=== PATIENT | male | born 1935 | race African-American/Black ===

== ENCOUNTER 2019-01-12 20:32 | Inpatient (IN) | payer MEDICARE ==
[~2019-01-12] VITALS: Ht 175.3 cm; Wt 75.0 kg
[2019-01-12] MEDS ORDERED: SODIUM CHLORIDE 0.9% 1,000 ML IV ONE (21:43)
[2019-01-12] MEDS ORDERED: ONDANSETRON HCL 4MG/2ML INJ IV STA (21:43)
[2019-01-12] MEDS ORDERED: MORPHINE SULFATE 4 MG/ML CPJ (NOT FOR IM USE) IV STA (21:43)
[2019-01-12] MEDS ORDERED: HYDRALAZINE 20MG/ML VIAL IV ONE (23:30)
[2019-01-12 23:55] LABS: BASOPHILS % 0.5 % (0.0-2.0); EOSINOPHILS % 4.9 % (0.0-5.0); HEMOGLOBIN. 8.9 g/dL (14.0-18.0); LYMPHOCYTES % 33.3 % (20.0-50.0); MEAN CORPUSCULAR HEMOGLOBIN 27.3 pg (28.0-32.0); MEAN CORPUSCULAR VOLUME 83.4 fL (80.0-94.0); MEAN PLATELET VOLUME 6.7 fl (7.4-10.4); MONOCYTES % 9.5 % (2.0-8.0); NEUTROPHILS % 51.8 % (40.0-76.0); PLATELET 232 x1000/uL (130-400); RED BLOOD CELL COUNT 3.24 mill/uL (4.7-6.1); RED CELL DISTRIBUTION WIDTH 17.6 % (11.6-14.6)
[2019-01-13 00:01] LABS: CHLORIDE 113 mEq/L (98-107)
[2019-01-13 00:05] LABS: INR 1.1; PARTIAL THROMBOPLASTIN TIME 26.8 sec (23.4-31.0); PROTHROMBIN TIME 11.3 sec (9.6-11.0)
[2019-01-13] MEDS ORDERED: MORPHINE SULFATE 4 MG/ML CPJ (NOT FOR IM USE) IV ONE (00:45)
[2019-01-13] MEDS ORDERED: CEFTRIAXONE 1 G PREMIX 50 ML IV ONE (00:45)
[2019-01-13 01:10] LABS: CLARITY URINE CLEAR (CLEAR); COLOR URINE YELLOW (YELLOW); KETONES URINE NEGATIVE (NEGATIVE); LEUKOCYTE ESTERASE URINE NEGATIVE (NEGATIVE); NITRITE URINE NEGATIVE (NEGATIVE); OCCULT BLOOD URINE 1+ (NEGATIVE); PROTEIN URINE 2+ (NEGATIVE); SPECIFIC GRAVITY URINE 1.011 (1.005-1.030); UROBILINOGEN URINE 0.2 E.U./dL (0.2-1.0)
[2019-01-13] MEDS ORDERED: ASPIRIN 81MG TABLET PO ONE (01:45)
[2019-01-13] MEDS ORDERED: CLONIDINE 0.2MG TABLET PO ONE (07:54)
[2019-01-13] MEDS: MORPHINE SULFATE 2 MG/ML CPJ (NOT FOR IM USE) IV PRN ×2 (08:56→13:38)
[2019-01-13] MEDS ORDERED: ONDANSETRON HCL 4MG/2ML INJ IV PRN (11:00)
[2019-01-13] MEDS ORDERED: SORBITOL 70% SOLN 30ML PO NR (11:00)
[2019-01-13 11:22] VITALS: BP 176/98
[2019-01-13] MEDS ORDERED: ASPI-1393 MT (11:22)
[2019-01-13] MEDS ORDERED: OMEP20CA5 MT (11:22)
[2019-01-13] MEDS ORDERED: DOCU250C14 MT (11:22)
[2019-01-13] MEDS ORDERED: ATOR10TA MT (11:22)
[2019-01-13] MEDS ORDERED: MIRT45TA83 MT (11:22)
[2019-01-13] MEDS ORDERED: POLY17PO3 MT (11:22)
[2019-01-13] MEDS ORDERED: NIFE90TA34 PO (11:22)
[2019-01-13] MEDS ORDERED: LABE200T28 MT (11:22)
[2019-01-13] MEDS ORDERED: SEVE800T8 MT (11:22)
[2019-01-13] MEDS ORDERED: TAMS-11 MT (11:22)
[2019-01-13] MEDS: LOSARTAN POTASSIUM 100 MG TABLET PO SCH (11:38)
[2019-01-13] MEDS: NIFEDIPINE XL 90MG TAB PO SCH (11:38)
[2019-01-13] MEDS ORDERED: LACTULOSE 20G/30ML UDC PO PRN (11:45)
[2019-01-13 12:32] VITALS: BP 189/94
[2019-01-13] MEDS: DOCUSATE SODIUM 100MG CAPSULE PO SCH ×2 (12:39→17:10)
[2019-01-13] MEDS: CITRIC ACID/SODIUM CITRATE SOLN 30ML UDC PO SCH ×2 (12:39→17:10)
[2019-01-13] MEDS ORDERED: MORPHINE SULFATE 2 MG/ML CPJ (NOT FOR IM USE) IV NR (13:38)
[2019-01-13 16:13] VITALS: BP_SYST 184; BP_SYST 185; BP_DIAS 98
[2019-01-13] MEDS ORDERED: LABETALOL 5MG/ML SYR 20 MG/4 ML SYRINGE IV NR (16:45)
[2019-01-13] MEDS ORDERED: HYDRALAZINE 20MG/ML VIAL IV NR (18:30)
[2019-01-13 20:00] VITALS: BP 156/82
[2019-01-13] MEDS: HYDRALAZINE HCL 50MG TABLET PO SCH (21:47)
[2019-01-13] MEDS: METOPROLOL TARTRATE 100MG TABLET PO SCH (21:47)
[2019-01-14] VITALS: BP 165/87
[2019-01-14] MEDS: CLONIDINE 0.1MG TABLET PO PRN ×2 (00:44→17:17)
[2019-01-14 04:00] VITALS: BP 139/83
[2019-01-14 08:20] LABS: BASOPHILS % 0.7 % (0.0-2.0); EOSINOPHILS % 4.9 % (0.0-5.0); HEMOGLOBIN. 8.7 g/dL (14.0-18.0); LYMPHOCYTES % 32.5 % (20.0-50.0); MEAN CORPUSCULAR HEMOGLOBIN 27.9 pg (28.0-32.0); MEAN CORPUSCULAR VOLUME 83.3 fL (80.0-94.0); MEAN PLATELET VOLUME 7.1 fl (7.4-10.4); MONOCYTES % 12.2 % (2.0-8.0); NEUTROPHILS % 49.7 % (40.0-76.0); PLATELET 221 x1000/uL (130-400); RED BLOOD CELL COUNT 3.12 mill/uL (4.7-6.1); RED CELL DISTRIBUTION WIDTH 17.9 % (11.6-14.6)
[2019-01-14] MEDS: NIFEDIPINE XL 90MG TAB PO SCH (09:00)
[2019-01-14] MEDS: METOPROLOL TARTRATE 100MG TABLET PO SCH ×2 (09:00→20:28)
[2019-01-14 09:02] LABS: PHOSPHORUS 5.2 mg/dL (2.5-4.9)
[2019-01-14] MEDS: DOCUSATE SODIUM 100MG CAPSULE PO SCH ×2 (09:16→17:16)
[2019-01-14] MEDS: LOSARTAN POTASSIUM 100 MG TABLET PO SCH (09:17)
[2019-01-14] MEDS: HYDRALAZINE HCL 50MG TABLET PO SCH (09:18)
[2019-01-14] MEDS: CITRIC ACID/SODIUM CITRATE SOLN 30ML UDC PO SCH ×3 (09:25→17:16)
[2019-01-14 20:00] VITALS: BP 174/90
[2019-01-14] MEDS: HYDRALAZINE HCL 100MG TABLET PO SCH (20:28)
[2019-01-15] VITALS: BP 185/90
[2019-01-15] MEDS: CLONIDINE 0.1MG TABLET PO PRN ×2 (00:19→06:20)
[2019-01-15 04:30] VITALS: BP 288/87
[2019-01-15 07:55] VITALS: BP 186/85
[2019-01-15 08:09] LABS: EOSINOPHILS % 4.5 % (0.0-5.0); HEMATOCRIT. 25.3 % (42.0-52.0); HEMOGLOBIN. 8.4 g/dL (14.0-18.0); LYMPHOCYTES % 36.5 % (20.0-50.0); MEAN CORPUSCULAR HEMOGLOBIN 27.9 pg (28.0-32.0); MEAN CORPUSCULAR VOLUME 83.3 fL (80.0-94.0); MEAN PLATELET VOLUME 7.3 fl (7.4-10.4); MONOCYTES % 11.9 % (2.0-8.0); NEUTROPHILS % 46.1 % (40.0-76.0); PLATELET 212 x1000/uL (130-400); RED BLOOD CELL COUNT 3.03 mill/uL (4.7-6.1); RED CELL DISTRIBUTION WIDTH 17.9 % (11.6-14.6)
[2019-01-15 08:22] LABS: PHOSPHORUS 5.8 mg/dL (2.5-4.9)
[2019-01-15] MEDS: METOPROLOL TARTRATE 100MG TABLET PO SCH ×2 (09:00→20:17)
[2019-01-15] MEDS ORDERED: LIDOCAINE HCL 1% 20ML VIAL (Pyxis) INJ ONE (09:01)
[2019-01-15] MEDS: DOCUSATE SODIUM 100MG CAPSULE PO SCH ×2 (09:03→18:40)
[2019-01-15] MEDS: CITRIC ACID/SODIUM CITRATE SOLN 30ML UDC PO SCH (09:03)
[2019-01-15] MEDS: NIFEDIPINE XL 90MG TAB PO SCH (09:04)
[2019-01-15] MEDS: HYDRALAZINE HCL 100MG TABLET PO SCH ×3 (09:04→20:17)
[2019-01-15] MEDS: LOSARTAN POTASSIUM 100 MG TABLET PO SCH (09:04)
[2019-01-15 13:17] LABS: HEPATITIS B SURFACE ANTIGEN NEGATIVE
[2019-01-15] MEDS: MORPHINE SULFATE 2 MG/ML CPJ (NOT FOR IM USE) IV PRN ×2 (14:00→20:18)
[2019-01-15] MEDS: CLONIDINE 0.1MG TABLET PO SCH ×2 (14:00→20:17)
[2019-01-15 15:49] VITALS: BP 152/84
[2019-01-15 19:57] VITALS: BP 195/88
[2019-01-15 21:30] VITALS: BP 158/74
[2019-01-16] VITALS: BP 161/76
[2019-01-16 04:00] VITALS: BP 123/59
[2019-01-16] MEDS: HYDRALAZINE HCL 100MG TABLET PO SCH ×4 (05:22→22:00)
[2019-01-16] MEDS: CLONIDINE 0.1MG TABLET PO SCH ×4 (05:22→22:00)
[2019-01-16 05:37] LABS: PHOSPHORUS 4.9 mg/dL (2.5-4.9)
[2019-01-16 06:11] LABS: BASOPHILS % 0.4 % (0.0-2.0); HEMATOCRIT. 25.8 % (42.0-52.0); HEMOGLOBIN. 8.4 g/dL (14.0-18.0); LYMPHOCYTES % 30.1 % (20.0-50.0); MEAN CORPUSCULAR HEMOGLOBIN 27.2 pg (28.0-32.0); MEAN CORPUSCULAR VOLUME 83.7 fL (80.0-94.0); MEAN PLATELET VOLUME 7.4 fl (7.4-10.4); MONOCYTES % 12.1 % (2.0-8.0); NEUTROPHILS % 53.4 % (40.0-76.0); PLATELET 193 x1000/uL (130-400); RED BLOOD CELL COUNT 3.08 mill/uL (4.7-6.1); RED CELL DISTRIBUTION WIDTH 17.9 % (11.6-14.6)
[2019-01-16 08:00] VITALS: BP 208/98
[2019-01-16] MEDS: METOPROLOL TARTRATE 100MG TABLET PO SCH ×5 (08:55→21:54)
[2019-01-16] MEDS: PAROXETINE HCL 10MG TABLET PO SCH ×3 (08:55→10:45)
[2019-01-16] MEDS: LOSARTAN POTASSIUM 100 MG TABLET PO SCH ×3 (08:56→10:45)
[2019-01-16] MEDS: CLONIDINE 0.1MG TABLET PO PRN ×2 (08:56→10:45)
[2019-01-16] MEDS: NIFEDIPINE XL 90MG TAB PO SCH ×2 (09:00→10:45)
[2019-01-16] MEDS: DOCUSATE SODIUM 100MG CAPSULE PO SCH ×2 (09:00→17:00)
[2019-01-16 12:00] VITALS: BP 177/90
[2019-01-16 14:17] LABS: HIV SCREEN 4G Non Reactive (Non Reactive)
[2019-01-16] MEDS: LORAZEPAM 2MG/ML CPJ IV PRN ×2 (16:54→22:15)
[2019-01-16] MEDS ORDERED: LACTULOSE 20G/30ML UDC PO PRN (17:00)
[2019-01-16 20:00] VITALS: BP 179/92
[2019-01-16] MEDS: EPOETIN ALFA 10000UNITS/ML VIAL SUBCUT SCH (21:55)
[2019-01-16] MEDS: HYDRALAZINE 20MG/ML VIAL IV PRN (23:10)
[2019-01-17] VITALS: BP 141/81
[2019-01-17 04:32] VITALS: BP 174/94
[2019-01-17] MEDS: HYDRALAZINE 20MG/ML VIAL IV PRN (05:51)
[2019-01-17] MEDS: HYDRALAZINE HCL 100MG TABLET PO SCH ×3 (05:52→21:39)
[2019-01-17] MEDS: CLONIDINE 0.1MG TABLET PO SCH ×3 (05:52→21:39)
[2019-01-17 07:22] LABS: BASOPHILS % 0.9 % (0.0-2.0); EOSINOPHILS % 2.7 % (0.0-5.0); HEMATOCRIT. 31.4 % (42.0-52.0); HEMOGLOBIN. 10.3 g/dL (14.0-18.0); LYMPHOCYTES % 23.6 % (20.0-50.0); MEAN CORPUSCULAR HEMOGLOBIN 27.3 pg (28.0-32.0); MEAN CORPUSCULAR VOLUME 83.2 fL (80.0-94.0); MEAN PLATELET VOLUME 7.4 fl (7.4-10.4); MONOCYTES % 13.6 % (2.0-8.0); NEUTROPHILS % 59.2 % (40.0-76.0); PLATELET 199 x1000/uL (130-400); RED BLOOD CELL COUNT 3.77 mill/uL (4.7-6.1); RED CELL DISTRIBUTION WIDTH 17.6 % (11.6-14.6)
[2019-01-17 08:00] VITALS: BP 197/100
[2019-01-17] MEDS: METOPROLOL TARTRATE 100MG TABLET PO SCH ×2 (09:03→21:39)
[2019-01-17] MEDS: PAROXETINE HCL 10MG TABLET PO SCH (09:04)
[2019-01-17] MEDS: LOSARTAN POTASSIUM 100 MG TABLET PO SCH (09:04)
[2019-01-17] MEDS: DOCUSATE SODIUM 100MG CAPSULE PO SCH ×2 (09:04→16:25)
[2019-01-17] MEDS: NIFEDIPINE XL 90MG TAB PO SCH (09:04)
[2019-01-17 10:01] LABS: PHOSPHORUS 4.1 mg/dL (2.5-4.9)
[2019-01-17 12:00] VITALS: BP 139/78
[2019-01-17 16:00] VITALS: BP 157/82
[2019-01-17 20:03] VITALS: BP 136/69
[2019-01-18] VITALS (18 sets, daily range): BP systolic 99–158; BP diastolic 53–80
[2019-01-18] MEDS: ACETAMINOPHEN 325MG TABLET PO PRN ×2 (04:29→12:22)
[2019-01-18] MEDS: CLONIDINE 0.1MG TABLET PO SCH ×3 (05:36→21:41)
[2019-01-18] MEDS: HYDRALAZINE HCL 100MG TABLET PO SCH ×3 (05:36→21:41)
[2019-01-18 07:30] LABS: BASOPHILS % 0.7 % (0.0-2.0); EOSINOPHILS % 3.2 % (0.0-5.0); HEMATOCRIT. 28.1 % (42.0-52.0); HEMOGLOBIN. 9.2 g/dL (14.0-18.0); LYMPHOCYTES % 18.7 % (20.0-50.0); MEAN CORPUSCULAR HEMOGLOBIN 27.5 pg (28.0-32.0); MEAN CORPUSCULAR VOLUME 83.5 fL (80.0-94.0); MEAN PLATELET VOLUME 7.6 fl (7.4-10.4); MONOCYTES % 14.2 % (2.0-8.0); NEUTROPHILS % 63.2 % (40.0-76.0); PLATELET 187 x1000/uL (130-400); RED BLOOD CELL COUNT 3.36 mill/uL (4.7-6.1); RED CELL DISTRIBUTION WIDTH 17.9 % (11.6-14.6)
[2019-01-18] MEDS ORDERED: SODIUM BICARBONATE 4% (2.4MEQ) 5ML VIAL IV ONE ×2 (07:39→09:01)
[2019-01-18] MEDS ORDERED: LIDOCAINE HCL 1% 20ML VIAL (Pyxis) INJ ONE ×2 (07:39→09:02)
[2019-01-18 07:55] LABS: PHOSPHORUS 5.3 mg/dL (2.5-4.9)
[2019-01-18] MEDS ORDERED: FENTANYL CITRATE/PF 50MCG/ML 2ML VIAL ONE (09:04)
[2019-01-18] MEDS ORDERED: CEFAZOLIN 1000MG PREMIX 50 ML IV ONE ×2 (09:04→09:30)
[2019-01-18] MEDS ORDERED: FENTANYL CITRATE/PF 50MCG/ML 2ML VIAL IV NR (09:30)
[2019-01-18] MEDS: LOSARTAN POTASSIUM 100 MG TABLET PO SCH (10:45)
[2019-01-18] MEDS: DOCUSATE SODIUM 100MG CAPSULE PO SCH ×2 (10:45→17:00)
[2019-01-18] MEDS: NIFEDIPINE XL 90MG TAB PO SCH (10:46)
[2019-01-18] MEDS: PAROXETINE HCL 10MG TABLET PO SCH (10:46)
[2019-01-18] MEDS: METOPROLOL TARTRATE 100MG TABLET PO SCH ×2 (10:46→21:00)
[2019-01-18] MEDS: LORAZEPAM 2MG/ML CPJ IV PRN (15:02)
[2019-01-19] VITALS: BP 142/73
[2019-01-19 04:00] VITALS: BP 130/61
[2019-01-19] MEDS: ACETAMINOPHEN 325MG TABLET PO PRN (04:09)
[2019-01-19] MEDS: EPOETIN ALFA 10000UNITS/ML VIAL SUBCUT SCH (04:11)
[2019-01-19] MEDS: CLONIDINE 0.1MG TABLET PO SCH ×3 (05:23→21:59)
[2019-01-19] MEDS: HYDRALAZINE HCL 100MG TABLET PO SCH ×3 (05:23→21:59)
[2019-01-19 06:33] LABS: BASOPHILS % 0.2 % (0.0-2.0); EOSINOPHILS % 1.9 % (0.0-5.0); HEMATOCRIT. 28.7 % (42.0-52.0); HEMOGLOBIN. 9.4 g/dL (14.0-18.0); LYMPHOCYTES % 18.8 % (20.0-50.0); MEAN CORPUSCULAR HEMOGLOBIN 27.2 pg (28.0-32.0); MEAN CORPUSCULAR VOLUME 83.2 fL (80.0-94.0); MEAN PLATELET VOLUME 7.7 fl (7.4-10.4); MONOCYTES % 14.7 % (2.0-8.0); NEUTROPHILS % 64.4 % (40.0-76.0); PLATELET 169 x1000/uL (130-400); RED BLOOD CELL COUNT 3.45 mill/uL (4.7-6.1); RED CELL DISTRIBUTION WIDTH 17.4 % (11.6-14.6)
[2019-01-19 08:00] VITALS: BP 141/60
[2019-01-19] MEDS: DOCUSATE SODIUM 100MG CAPSULE PO SCH ×2 (09:11→17:00)
[2019-01-19] MEDS: LOSARTAN POTASSIUM 100 MG TABLET PO SCH (09:11)
[2019-01-19] MEDS: METOPROLOL TARTRATE 100MG TABLET PO SCH ×2 (09:11→20:28)
[2019-01-19] MEDS: PAROXETINE HCL 10MG TABLET PO SCH (09:11)
[2019-01-19] MEDS: NIFEDIPINE XL 90MG TAB PO SCH (09:11)
[2019-01-19 09:31] LABS: PHOSPHORUS 3.3 mg/dL (2.5-4.9)
[2019-01-19 12:00] VITALS: BP_SYST 10; BP_SYST 160; BP_DIAS 60
[2019-01-19 20:00] VITALS: BP 130/59
[2019-01-20] VITALS: BP 97/58
[2019-01-20 04:00] VITALS: BP 136/77
[2019-01-20] MEDS: CLONIDINE 0.1MG TABLET PO SCH (06:22)
[2019-01-20] MEDS: HYDRALAZINE HCL 100MG TABLET PO SCH (06:22)
[2019-01-20] MEDS: ACETAMINOPHEN 325MG TABLET PO PRN (06:31)
[2019-01-20 07:29] LABS: HEMOGLOBIN. 8.8 g/dL (14.0-18.0); MEAN CORPUSCULAR HEMOGLOBIN 27.3 pg (28.0-32.0); MEAN PLATELET VOLUME 7.8 fl (7.4-10.4); PLATELET 179 x1000/uL (130-400); RED BLOOD CELL COUNT 3.22 mill/uL (4.7-6.1)
[2019-01-20 07:32] LABS: PHOSPHORUS 4.2 mg/dL (2.5-4.9)
[2019-01-20 08:00] VITALS: BP 117/59
[2019-01-20] MEDS: LOSARTAN POTASSIUM 100 MG TABLET PO SCH (09:00)
[2019-01-20] MEDS: METOPROLOL TARTRATE 100MG TABLET PO SCH (09:00)
[2019-01-20] MEDS: NIFEDIPINE XL 90MG TAB PO SCH (09:00)
[2019-01-20] MEDS: LORAZEPAM 2MG/ML CPJ IV PRN (09:31)
[2019-01-20] MEDS: DOCUSATE SODIUM 100MG CAPSULE PO SCH ×2 (09:31→17:00)
[2019-01-20] MEDS: PAROXETINE HCL 10MG TABLET PO SCH (09:32)
[2019-01-20 12:00] VITALS: BP 88/54
[2019-01-20 13:40] LABS: PLATELET ESTIMATE NORMAL
[2019-01-20 15:52] VITALS: BP_SYST 130; BP_SYST 139; BP_DIAS 63
[2019-01-20 16:00] VITALS: BP 130/63
[2019-01-20] MEDS ORDERED: HYDRALAZINE HCL 25MG TABLET PO SCH (21:00)
[2019-01-20] MEDS ORDERED: METOPROLOL TARTRATE 50MG TABLET PO SCH (21:00)
[2019-01-21] MEDS ORDERED: NIFEDIPINE XL 60MG TAB PO SCH (09:00)
== END 2019-01-20 18:35 | disposition home or self-care (01) | DRG 673 ==
LOC: ER 20:32 → ENRESERV 01-13 08:10 → EDBD 01-13 10:03 → 6WST 01-13 10:03
PROVIDERS: ADMIT Internal Medicine; ATTEND Internal Medicine
PROC: 02HV33Z Insertion of Infusion Device into Superior Vena Cava, Percutaneous Approach (ICD-10-PCS; principal; 2019-01-15)
PROC: B5181ZA Fluoroscopy of Superior Vena Cava using Low Osmolar Contrast, Guidance (ICD-10-PCS; 2019-01-15)
PROC: B548ZZA Ultrasonography of Superior Vena Cava, Guidance (ICD-10-PCS; 2019-01-15)
PROC: 5A1D70Z Performance of Urinary Filtration, Intermittent, Less than 6 Hours Per Day (ICD-10-PCS; 2019-01-15)
PROC: 5A1D70Z Performance of Urinary Filtration, Intermittent, Less than 6 Hours Per Day (ICD-10-PCS; 2019-01-16)
PROC: 0JH63XZ Insertion of Tunneled Vascular Access Device into Chest Subcutaneous Tissue and Fascia, Percutaneous Approach (ICD-10-PCS; 2019-01-18)
PROC: 02HV33Z Insertion of Infusion Device into Superior Vena Cava, Percutaneous Approach (ICD-10-PCS; 2019-01-18)
PROC: B5181ZA Fluoroscopy of Superior Vena Cava using Low Osmolar Contrast, Guidance (ICD-10-PCS; 2019-01-18)
PROC: B548ZZA Ultrasonography of Superior Vena Cava, Guidance (ICD-10-PCS; 2019-01-18)
PROC: 02HV33Z Insertion of Infusion Device into Superior Vena Cava, Percutaneous Approach (ICD-10-PCS; 2019-01-18)
PROC: B5181ZA Fluoroscopy of Superior Vena Cava using Low Osmolar Contrast, Guidance (ICD-10-PCS; 2019-01-18)
PROC: B548ZZA Ultrasonography of Superior Vena Cava, Guidance (ICD-10-PCS; 2019-01-18)
PROC: 5A1D70Z Performance of Urinary Filtration, Intermittent, Less than 6 Hours Per Day (ICD-10-PCS; 2019-01-18)
PROC: 02PYX3Z Removal of Infusion Device from Great Vessel, External Approach (ICD-10-PCS; 2019-01-18)
PROC: 5A1D70Z Performance of Urinary Filtration, Intermittent, Less than 6 Hours Per Day (ICD-10-PCS; 2019-01-20)
DX: I12.0 Hypertensive chronic kidney disease with stage 5 chronic kidney disease or end stage renal disease (principal); N17.0 Acute kidney failure with tubular necrosis; E44.0 Moderate protein-calorie malnutrition; E87.2 Acidosis; J98.11 Atelectasis; N18.5 Chronic kidney disease, stage 5; K59.00 Constipation, unspecified; D63.8 Anemia in other chronic diseases classified elsewhere; I16.0 Hypertensive urgency; E87.8 Other disorders of electrolyte and fluid balance, not elsewhere classified; F03.90 Unspecified dementia, unspecified severity, without behavioral disturbance, psychotic disturbance, mood disturbance, and anxiety; G89.29 Other chronic pain; J45.909 Unspecified asthma, uncomplicated; I25.10 Atherosclerotic heart disease of native coronary artery without angina pectoris; F32.9 Major depressive disorder, single episode, unspecified; R41.0 Disorientation, unspecified; I95.9 Hypotension, unspecified; Z82.49 Family history of ischemic heart disease and other diseases of the circulatory system; Z90.5 Acquired absence of kidney; Z68.24 Body mass index [BMI] 24.0-24.9, adult; Z99.2 Dependence on renal dialysis; Z59.0 Homelessness; Z79.899 Other long term (current) drug therapy; Z79.82 Long term (current) use of aspirin; Z78.1 Physical restraint status
CPT/HCPCS: 36415; 36558; 36573; 36589; 71045; 74176; 77001; 80048; 81003; 82550; 82962; 83735; 84100; 84484; 86705; 86706; 86803; 87340; 87389; 93005; 93306; 93970; 96374; 97162; 99291; C1725; C1750; C1752; C1769; J0360; J0690; J0696; J0885; J1642; J2060; J2270; J2405; J3010; J3490; J7030; A4315

== ENCOUNTER 2019-01-23 12:11 | Inpatient (IN) | payer MEDICARE ==
[~2019-01-23] VITALS: Ht 172.7 cm; Wt 73.5 kg
[~2019-01-23 12:11] MED LIST: ASPI-1393 MT; ATOR10TA MT; DOCU250C14 MT; LABE200T28 MT; MIRT45TA83 MT; NIFE90TA34 PO; OMEP20CA5 MT; POLY17PO3 MT; SEVE800T8 MT; TAMS-11 MT
[2019-01-23 12:58] LABS: BASOPHILS % 1.3 % (0.0-2.0); EOSINOPHILS % 4.9 % (0.0-5.0); HEMATOCRIT. 26.7 % (42.0-52.0); HEMOGLOBIN. 8.6 g/dL (14.0-18.0); LYMPHOCYTES % 24.9 % (20.0-50.0); MEAN CORPUSCULAR VOLUME 84.1 fL (80.0-94.0); MEAN PLATELET VOLUME 6.9 fl (7.4-10.4); MONOCYTES % 10.5 % (2.0-8.0); NEUTROPHILS % 58.4 % (40.0-76.0); PLATELET 238 x1000/uL (130-400); RED BLOOD CELL COUNT 3.17 mill/uL (4.7-6.1); RED CELL DISTRIBUTION WIDTH 16.9 % (11.6-14.6)
[2019-01-23 13:04] LABS: CHLORIDE 105 mEq/L (98-107)
[2019-01-23 13:05] LABS: PROTHROMBIN TIME 10.7 sec (9.6-11.0)
[2019-01-23 13:08] LABS: ETHANOL BLOOD < 10 mg/dL
[2019-01-23 13:11] LABS: LDL CHOLESTEROL 49 mg/dL (5-100)
[2019-01-23] MEDS ORDERED: ASPIRIN 325MG EC TABLET PO ONE (14:00)
[2019-01-23] MEDS ORDERED: LORAZEPAM 2MG/ML CPJ IV PRN (16:45)
[2019-01-23] MEDS ORDERED: DIPHENHYDRAMINE 50MG/ML VIAL IV PRN (16:45)
[2019-01-23] MEDS ORDERED: ONDANSETRON HCL 4MG/2ML INJ IV PRN (16:45)
[2019-01-23] MEDS ORDERED: DOCUSATE SODIUM 100MG CAPSULE PO PRN (16:45)
[2019-01-23] MEDS ORDERED: ENOXAPARIN 40MG/0.4ML SYR SUBCUT SCH (16:45)
[2019-01-23] MEDS ORDERED: GUAIFENESIN 200MG/10ML SUGAR FREE UDC PO PRN (16:45)
[2019-01-23] MEDS ORDERED: MAGNESIUM/ALUMINUM HYDROXIDE/SIMETHICONE 30ML UDC PO PRN (16:45)
[2019-01-23] MEDS ORDERED: IPRATROPIUM/ALBUTEROL 0.5-3(2.5)MG/3ML NEB HHN PRN (16:45)
[2019-01-23 18:10] VITALS: BP 133/73
[2019-01-23 20:00] VITALS: BP 177/93
[2019-01-23] MEDS: HYDROCODONE/ACETAMINOPHEN 10/325MG TABLET PO PRN (20:40)
[2019-01-23] MEDS: ENOXAPARIN 30MG/0.3ML SYR SUBCUT SCH (20:40)
[2019-01-23] MEDS: SODIUM CHLORIDE 0.9% INJ 3ML FLUSH IVF SCH (20:40)
[2019-01-23] MEDS: CLONIDINE 0.1MG TABLET PO PRN (20:46)
[2019-01-23 23:41] LABS: CREATINE KINASE MB FRACTION 2.2 ng/mL (0.5-3.6)
[2019-01-24] VITALS (7 sets, daily range): BP systolic 120–169; BP diastolic 74–94
[2019-01-24] MEDS: SODIUM CHLORIDE 0.9% INJ 3ML FLUSH IVF SCH ×3 (05:41→21:52)
[2019-01-24 06:40] LABS: CHLORIDE 109 mEq/L (98-107)
[2019-01-24 06:50] LABS: CREATINE KINASE 214 IU/L (39-308); CREATINE KINASE MB FRACTION 1.9 ng/mL (0.5-3.6); T4 FREE 1.08 ng/dL (0.76-1.46)
[2019-01-24 10:26] LABS: BASOPHILS % 0.7 % (0.0-2.0); EOSINOPHILS % 4.3 % (0.0-5.0); HEMATOCRIT. 25.9 % (42.0-52.0); HEMOGLOBIN. 8.4 g/dL (14.0-18.0); MEAN CORPUSCULAR HEMOGLOBIN 27.4 pg (28.0-32.0); MEAN CORPUSCULAR VOLUME 84.7 fL (80.0-94.0); MEAN PLATELET VOLUME 6.9 fl (7.4-10.4); MONOCYTES % 11.7 % (2.0-8.0); NEUTROPHILS % 58.3 % (40.0-76.0); PLATELET 249 x1000/uL (130-400); RED BLOOD CELL COUNT 3.06 mill/uL (4.7-6.1); RED CELL DISTRIBUTION WIDTH 16.8 % (11.6-14.6)
[2019-01-24 10:39] LABS: T4 FREE 0.99 ng/dL (0.76-1.46)
[2019-01-24 15:37] LABS: CREATINE KINASE MB FRACTION 1.7 ng/mL (0.5-3.6)
[2019-01-24] MEDS: HYDROCODONE/ACETAMINOPHEN 10/325MG TABLET PO PRN (18:53)
[2019-01-24] MEDS: ENOXAPARIN 30MG/0.3ML SYR SUBCUT SCH (20:09)
[2019-01-24] MEDS: HYDROMORPHONE HCL/PF 2MG/ML CPJ IV PRN (20:09)
[2019-01-24] MEDS: EPOETIN ALFA 10000UNITS/ML VIAL SUBCUT SCH (20:10)
[2019-01-24 23:57] LABS: CREATINE KINASE MB FRACTION 1.4 ng/mL (0.5-3.6)
[2019-01-25] VITALS: BP 155/75
[2019-01-25] MEDS: HYDROMORPHONE HCL/PF 2MG/ML CPJ IV PRN ×2 (00:22→14:45)
[2019-01-25 04:00] VITALS: BP 173/102
[2019-01-25 05:00] VITALS: BP 159/82
[2019-01-25] MEDS: CLONIDINE 0.1MG TABLET PO PRN ×2 (05:14→13:59)
[2019-01-25] MEDS: SODIUM CHLORIDE 0.9% INJ 3ML FLUSH IVF SCH ×3 (05:14→22:25)
[2019-01-25 06:07] LABS: PHOSPHORUS 3.4 mg/dL (2.5-4.9)
[2019-01-25 06:11] LABS: CREATINE KINASE MB FRACTION 1.4 ng/mL (0.5-3.6)
[2019-01-25 06:13] LABS: BASOPHILS % 0.7 % (0.0-2.0); EOSINOPHILS % 3.7 % (0.0-5.0); HEMATOCRIT. 27.2 % (42.0-52.0); HEMOGLOBIN. 8.8 g/dL (14.0-18.0); LYMPHOCYTES % 27.3 % (20.0-50.0); MEAN CORPUSCULAR HEMOGLOBIN 27.5 pg (28.0-32.0); MEAN CORPUSCULAR VOLUME 84.8 fL (80.0-94.0); MEAN PLATELET VOLUME 6.9 fl (7.4-10.4); MONOCYTES % 12.2 % (2.0-8.0); NEUTROPHILS % 56.1 % (40.0-76.0); PLATELET 251 x1000/uL (130-400); RED BLOOD CELL COUNT 3.21 mill/uL (4.7-6.1); RED CELL DISTRIBUTION WIDTH 16.8 % (11.6-14.6)
[2019-01-25] MEDS ORDERED: REGADENOSON 0.4 MG/5 ML IV ONE (08:15)
[2019-01-25 12:00] VITALS: BP 201/113
[2019-01-25] MEDS: AMLODIPINE 10MG TABLET PO SCH (15:56)
[2019-01-25 16:00] VITALS: BP 213/125
[2019-01-25 16:37] LABS: CLARITY URINE CLEAR (CLEAR); COLOR URINE YELLOW (YELLOW); KETONES URINE NEGATIVE (NEGATIVE); LEUKOCYTE ESTERASE URINE NEGATIVE (NEGATIVE); NITRITE URINE NEGATIVE (NEGATIVE); OCCULT BLOOD URINE NEGATIVE (NEGATIVE); PH URINE 8.5 (4.5-8.0); PROTEIN URINE 2+ (NEGATIVE); SPECIFIC GRAVITY URINE 1.009 (1.005-1.030); UROBILINOGEN URINE 0.2 E.U./dL (0.2-1.0)
[2019-01-25] MEDS ORDERED: HYDRALAZINE 20MG/ML VIAL IV PRN (16:45)
[2019-01-25 20:00] VITALS: BP 140/80
[2019-01-25] MEDS: ENOXAPARIN 30MG/0.3ML SYR SUBCUT SCH (22:25)
[2019-01-26] VITALS (9 sets, daily range): BP systolic 132–187; BP diastolic 71–109
[2019-01-26] MEDS: CLONIDINE 0.1MG TABLET PO PRN (04:55)
[2019-01-26] MEDS: SODIUM CHLORIDE 0.9% INJ 3ML FLUSH IVF SCH ×3 (04:58→20:42)
[2019-01-26 09:19] LABS: BASOPHILS % 0.7 % (0.0-2.0); EOSINOPHILS % 3.9 % (0.0-5.0); HEMATOCRIT. 27.9 % (42.0-52.0); HEMOGLOBIN. 8.9 g/dL (14.0-18.0); LYMPHOCYTES % 22.6 % (20.0-50.0); MEAN CORPUSCULAR HEMOGLOBIN 27.4 pg (28.0-32.0); MEAN CORPUSCULAR VOLUME 85.8 fL (80.0-94.0); NEUTROPHILS % 59.8 % (40.0-76.0); PLATELET 284 x1000/uL (130-400); RED BLOOD CELL COUNT 3.25 mill/uL (4.7-6.1); RED CELL DISTRIBUTION WIDTH 16.4 % (11.6-14.6)
[2019-01-26 09:24] LABS: PHOSPHORUS 3.9 mg/dL (2.5-4.9)
[2019-01-26] MEDS ORDERED: HEPARIN SODIUM 1,000 UNIT/1ML VIAL IV ONE (12:30)
[2019-01-26] MEDS: HYDROCODONE/ACETAMINOPHEN 10/325MG TABLET PO PRN ×2 (13:50→20:22)
[2019-01-26] MEDS: AMLODIPINE 10MG TABLET PO SCH (15:29)
[2019-01-26] MEDS: ENOXAPARIN 30MG/0.3ML SYR SUBCUT SCH (20:21)
[2019-01-26] MEDS ORDERED: LOSARTAN POTASSIUM 25 MG TABLET PO SCH (21:00)
[2019-01-26] MEDS: EPOETIN ALFA 10000UNITS/ML VIAL SUBCUT SCH (21:37)
[2019-01-27] VITALS (8 sets, daily range): BP systolic 146–179; BP diastolic 76–101
[2019-01-27] MEDS: HYDROCODONE/ACETAMINOPHEN 10/325MG TABLET PO PRN ×3 (04:52→16:41)
[2019-01-27] MEDS: SODIUM CHLORIDE 0.9% INJ 3ML FLUSH IVF SCH ×3 (06:42→20:54)
[2019-01-27 07:20] LABS: BASOPHILS % 0.7 % (0.0-2.0); EOSINOPHILS % 4.3 % (0.0-5.0); HEMATOCRIT. 26.1 % (42.0-52.0); HEMOGLOBIN. 8.5 g/dL (14.0-18.0); LYMPHOCYTES % 27.7 % (20.0-50.0); MEAN CORPUSCULAR HEMOGLOBIN 27.2 pg (28.0-32.0); MEAN PLATELET VOLUME 6.9 fl (7.4-10.4); MONOCYTES % 12.4 % (2.0-8.0); NEUTROPHILS % 54.9 % (40.0-76.0); PLATELET 288 x1000/uL (130-400); RED BLOOD CELL COUNT 3.11 mill/uL (4.7-6.1); RED CELL DISTRIBUTION WIDTH 16.4 % (11.6-14.6)
[2019-01-27 07:40] LABS: PHOSPHORUS 3.8 mg/dL (2.5-4.9)
[2019-01-27] MEDS: AMLODIPINE 10MG TABLET PO SCH (09:17)
[2019-01-27] MEDS ORDERED: MAGNESIUM 2 G PREMIX 50 ML IV NR (14:00)
[2019-01-27] MEDS: LOSARTAN POTASSIUM 50 MG TABLET PO SCH (20:53)
[2019-01-27] MEDS: ENOXAPARIN 30MG/0.3ML SYR SUBCUT SCH (20:54)
[2019-01-28] VITALS: BP 134/75
[2019-01-28 04:00] VITALS: BP 186/72
[2019-01-28 05:00] VITALS: BP 169/78
[2019-01-28] MEDS: SODIUM CHLORIDE 0.9% INJ 3ML FLUSH IVF SCH ×3 (05:28→22:09)
[2019-01-28 07:02] LABS: BASOPHILS % 0.7 % (0.0-2.0); EOSINOPHILS % 1.9 % (0.0-5.0); HEMOGLOBIN. 8.6 g/dL (14.0-18.0); LYMPHOCYTES % 15.3 % (20.0-50.0); MEAN CORPUSCULAR HEMOGLOBIN 26.9 pg (28.0-32.0); MEAN CORPUSCULAR VOLUME 84.5 fL (80.0-94.0); MEAN PLATELET VOLUME 6.9 fl (7.4-10.4); MONOCYTES % 14.1 % (2.0-8.0); PLATELET 316 x1000/uL (130-400); RED BLOOD CELL COUNT 3.19 mill/uL (4.7-6.1); RED CELL DISTRIBUTION WIDTH 16.3 % (11.6-14.6)
[2019-01-28 07:29] LABS: PHOSPHORUS 3.9 mg/dL (2.5-4.9)
[2019-01-28 08:01] VITALS: BP 179/86
[2019-01-28] MEDS: AMLODIPINE 10MG TABLET PO SCH (08:21)
[2019-01-28] MEDS: HYDROCODONE/ACETAMINOPHEN 10/325MG TABLET PO PRN (11:33)
[2019-01-28 16:00] VITALS: BP 168/88
[2019-01-28 20:00] VITALS: BP 151/90
[2019-01-28] MEDS: HYDRALAZINE HCL 50MG TABLET PO SCH (22:08)
[2019-01-28] MEDS: LOSARTAN POTASSIUM 50 MG TABLET PO SCH (22:08)
[2019-01-28 22:09] LABS: AMYLASE 93 IU/L (25-115)
[2019-01-28] MEDS: ENOXAPARIN 30MG/0.3ML SYR SUBCUT SCH (22:09)
[2019-01-28] MEDS: ACETAMINOPHEN 325MG TABLET PO PRN (22:11)
[2019-01-29] VITALS: BP 150/81
[2019-01-29 04:00] VITALS: BP 176/94
[2019-01-29] MEDS: SODIUM CHLORIDE 0.9% INJ 3ML FLUSH IVF SCH (06:04)
[2019-01-29 07:32] LABS: BASOPHILS % 0.6 % (0.0-2.0); EOSINOPHILS % 1.7 % (0.0-5.0); HEMATOCRIT. 29.4 % (42.0-52.0); HEMOGLOBIN. 9.1 g/dL (14.0-18.0); LYMPHOCYTES % 16.3 % (20.0-50.0); MEAN CORPUSCULAR HEMOGLOBIN 26.1 pg (28.0-32.0); MEAN CORPUSCULAR VOLUME 84.3 fL (80.0-94.0); MEAN PLATELET VOLUME 6.8 fl (7.4-10.4); MONOCYTES % 11.6 % (2.0-8.0); NEUTROPHILS % 69.8 % (40.0-76.0); PLATELET 395 x1000/uL (130-400); RED BLOOD CELL COUNT 3.49 mill/uL (4.7-6.1); RED CELL DISTRIBUTION WIDTH 16.2 % (11.6-14.6)
[2019-01-29 07:36] LABS: PHOSPHORUS 5.2 mg/dL (2.5-4.9)
[2019-01-29 08:00] VITALS: BP 170/84
[2019-01-29] MEDS: AMLODIPINE 10MG TABLET PO SCH (09:00)
[2019-01-29] MEDS: HYDRALAZINE HCL 50MG TABLET PO SCH (09:00)
[2019-01-29] MEDS: ACETAMINOPHEN 325MG TABLET PO PRN (09:35)
[2019-01-29 12:00] VITALS: BP 171/89
[2019-01-29 16:00] VITALS: BP 154/81
[2019-01-29 18:19] VITALS: BP 154/81
== END 2019-01-29 19:22 | DRG 70 ==
LOC: ER 12:11 → 7WST 14:02 → UNDOADMIN 14:02 → EDBEDREQSVC 14:04 → EDBEDREQ 14:04 → ENRESERV 16:04 → 7WST 20:05 → 8WST 01-24 21:00
PROVIDERS: ADMIT Internal Medicine; ATTEND Internal Medicine
PROC: 5A1D70Z Performance of Urinary Filtration, Intermittent, Less than 6 Hours Per Day (ICD-10-PCS; principal; 2019-01-23)
PROC: 5A1D70Z Performance of Urinary Filtration, Intermittent, Less than 6 Hours Per Day (ICD-10-PCS; 2019-01-24)
PROC: 5A1D70Z Performance of Urinary Filtration, Intermittent, Less than 6 Hours Per Day (ICD-10-PCS; 2019-01-25)
PROC: 5A1D70Z Performance of Urinary Filtration, Intermittent, Less than 6 Hours Per Day (ICD-10-PCS; 2019-01-28)
DX: G93.41 Metabolic encephalopathy (principal); N18.6 End stage renal disease; G45.9 Transient cerebral ischemic attack, unspecified; I12.0 Hypertensive chronic kidney disease with stage 5 chronic kidney disease or end stage renal disease; E46 Unspecified protein-calorie malnutrition; E87.1 Hypo-osmolality and hyponatremia; I25.10 Atherosclerotic heart disease of native coronary artery without angina pectoris; M13.0 Polyarthritis, unspecified; F32.9 Major depressive disorder, single episode, unspecified; J45.909 Unspecified asthma, uncomplicated; D64.9 Anemia, unspecified; Z99.2 Dependence on renal dialysis; Z86.73 Personal history of transient ischemic attack (TIA), and cerebral infarction without residual deficits; Z82.49 Family history of ischemic heart disease and other diseases of the circulatory system; Z79.899 Other long term (current) drug therapy; Z68.24 Body mass index [BMI] 24.0-24.9, adult
CPT/HCPCS: 36415; 70551; 71045; 73560; 74176; 80048; 80061; 80076; 80320; 81003; 82150; 82550; 82553; 82962; 83036; 83721; 83735; 83880; 84100; 84439; 84443; 84484; 85379; 93005; 99291; C1893; J0360; J0885; J1170; J1644; J1650; J3475; G0480